=== PATIENT | female | born 1980 | race Caucasian/White ===

== ENCOUNTER 2017-02-23 12:26 | Emergency (ER) | payer OTHER ==
[~2017-02-23] VITALS: Ht 121.9 cm; Wt 54.4 kg
[2017-02-23] MEDS ORDERED: DULO30CA PO (12:39)
[2017-02-23] MEDS ORDERED: PREV30CA11 PO (12:39)
[2017-02-23] MEDS ORDERED: CLON0.5T PO (12:39)
[2017-02-23] MEDS ORDERED: MYRB25TA PO (12:39)
[2017-02-23] MEDS ORDERED: VESI10TA PO (12:39)
[2017-02-23 14:03] VITALS: BP 116/70
[2017-02-23 14:11] LABS: MEAN CORPUSCULAR HEMOGLOBIN 29.6 pg (27.0-33.0); MEAN CORPUSCULAR HGB CONC 34.7 g/dl (32.0-36.5); MEAN CORPUSCULAR VOLUME 85.4 fl (80.0-96.0); RED CELL DISTRIBUTION WIDTH 12.8 % (11.5-14.5); WHITE BLOOD COUNT 7.8 K/mm3 (4.0-10.0)
--- NOTE | 2017-02-23 14:24 | REP ---
CT STUDY OF THE BRAIN WITHOUT IV CONTRAST: HISTORY: Headache. No comparison views. FINDINGS: Preliminary digital lateral metallographer view demonstrates a ventriculostomy shunt. Axial CT images show that this is right-sided entering from the posterior parietal region. The shunt terminates just to the left of midline in the anterior horn of the left lateral ventricle. The ventricles are not dilated. The foramen magnum appears widened and there is the suggestion of tonsillar ectopia. This raises a question of Arnold Chiari malformation. No midline shift is seen. Suprasellar cistern and peripheral subarachnoid space is unremarkable. Quadrigeminal plate cistern is not compressed. There is no evidence of intracranial hemorrhage. No extra-axial fluid collection is seen. Roper/white differentiation pattern is normal above and below the tentorium. No mass, infarction or midline shift is observed. IMPRESSION: Right-sided ventriculostomy shunt tube in place. Normal ventricular size. No other acute intracranial abnormality. Widened foramen magnum, question cerebellar tonsillar ectopia, Arnold Chiari malformation. Signed by Cristofer Beal MD 02/23/2017 03:07 P
[2017-02-23 14:28] LABS: ANION GAP 6 MEQ/L (8-16); BLOOD UREA NITROGEN 21 MG/DL (7-18); CALCIUM LEVEL 8.4 MG/DL (8.5-10.1); CARBON DIOXIDE LEVEL 28 MEQ/L (21-32); CHLORIDE LEVEL 106 MEQ/L (98-107); CREATININE FOR GFR 0.79 MG/DL (0.55-1.02); GLOMERULAR FILTRATION RATE > 60.0 (>60); GLUCOSE, FASTING 169 MG/DL (70-105); POTASSIUM SERUM 3.8 MEQ/L (3.5-5.1); SODIUM LEVEL 140 MEQ/L (136-145)
[2017-02-23 14:30] LABS: CONTROL LINE HCG INT CTR LINE PRESENT
--- NOTE | 2017-02-24 16:18 | ECGEPIP ---
Stationary ECG Study [facility] - ED Test Date: 2017-02-23 Pat Name: PIA MAO Department: Room: - Gender: F Nurse Practical: sam : 1980 Requested By: ANNIE VICENTE Order Number: [id number] Reading MD: Carola Foy Measurements Intervals [place] Rate: 102 P: 50 MD: 146 QRS: 59 QRSD: 70 T: 24 QT: 322 QTc: 420 Interpretive Statements SINUS TACHYCARDIA LOW QRS VOLTAGE IN PRECORDIAL LEADS ABNORMAL RHYTHM ECG NO PRIOR FOR COMPARISON Electronically Signed On 02-24-2017 16:18:04 EDT by Carola Foy
--- NOTE | 2017-02-26 06:36 | ED PDOC ---
Post-Departure Follow-Up dr marcus faxed formal report of ct head for fu Bhupinder Springer MD February 26, 2017 06:36
== END 2017-02-23 15:31 | disposition home or self-care (01) ==
LOC: M ED 15:19
DX: R55 Syncope and collapse (principal); R51 Headache; R11.0 Nausea; R93.0 Abnormal findings on diagnostic imaging of skull and head, not elsewhere classified; Q05.9 Spina bifida, unspecified; F41.9 Anxiety disorder, unspecified; F32.9 Major depressive disorder, single episode, unspecified; K59.09 Other constipation; Z88.2 Allergy status to sulfonamides; Z88.1 Allergy status to other antibiotic agents; Z79.899 Other long term (current) drug therapy; Z98.2 Presence of cerebrospinal fluid drainage device